=== PATIENT | female | born 1975 | race Hispanic/Latino ===

== ENCOUNTER 2020-10-20 10:42 | Inpatient (IN) | payer SELFPAY ==
--- NOTE | 2020-10-20 14:06 | Emergency Department Report ---
<MARIA ALEJANDRA DIANA - Last Filed: 10/20/20 19:12> ED Extremity Problem HPI - General Chief complaint: Extremity Injury, Lower Stated complaint: RT LOWER LEG PAIN Time Seen by Provider: 10/20/20 13:52 - Related Data Allergies Allergy/AdvReac Type Severity Reaction Status Date / Time Penicillins Allergy Swelling Verified 10/20/20 11:45 ED Course - Reevaluation(s) Reevaluation #1: 10/20/20 15:01 I received call from vascular lab that patient has acute right lower extremity DVT. I spoke to patient regarding her diagnosis. Patient states she was recently infected with Covid but her respiratory symptoms are improving. Patient does have mild tachycardia with normal sitting pulse ox. She is not currently on anticoagulants. I have ordered labs and CT angiogram for further reassessments. Subcu Lovenox ordered ED Medical Decision Making - Lab Data Result diagrams: 10/20/20 14:53 10/20/20 14:53 - Medical Decision Making pt to be admitted to the hospital. Case d/w Dr Baer and not a candidate for acute vascular intervention for Pulmonary embolism at this time. Pt room air sat 95% during ed stay (92% was an incorrect value on chart) ED Disposition Clinical Impression: Acute deep vein thrombosis of right lower extremity, Pulmonary embolism, bilateral, Post-COVID syndrome Disposition: ADMITTED INPATIENT Is pt being admited?: Yes Condition: Stable Time of Disposition: 19:14 (Dr Elliott/hospitalist) <СВЕТЛАНА TAM - Last Filed: 10/20/20 19:32> ED Extremity Problem HPI - General Source: patient Mode of arrival: Wheelchair Limitations: Physical Limitation - History of Present Illness Initial comments: 45 year old female presents to ED with complaints of right lower extremity pain and swelling. Patient states she noticed it yesterday. She states pain is from thigh down to calf, but more so in calf. Patient states her leg feels tight and it hurts. She denies any apparent redness or bruising to the leg. She denies any injury. Patient states that she was hospitalized for covid around october 09. He states that she spent 3 to 4 days in the hospital and got discharge. Patient states that she still have some residual shortness of breath from the Covid, but not as bad as when she first got sick. She denies any chest pain, dizziness, syncope or any additional symptoms. Patient states that other than her obesity she denies any other significant past history. She denies any h istory of PE or DVT in the past. MD Complaint: extremity pain, extremity swelling, joint paint -: Gradual (YESTERDAY ) ED Review of Systems ROS: Stated complaint: RT LOWER LEG PAIN Other details as noted in HPI Comment: All other systems reviewed and negative Constitutional: denies: chills, fever Eyes: denies: eye pain, eye discharge, vision change ENT: denies: ear pain, throat pain Respiratory: shortness of breath. denies: cough Cardiovascular: as per HPI. denies: chest pain, palpitations, dyspnea on exertion, orthopnea, edema, syncope, paroxysmal nocturnal dyspnea Endocrine: no symptoms reported Gastrointestinal: denies: abdominal pain, nausea, diarrhea, constipation, hematemesis, melena Genitourinary: denies: urgency, dysuria, frequency, hematuria, discharge Musculoskeletal: joint swelling, arthralgia, myalgia Skin: denies: rash, lesions, change in color, change in hair/nails, pruritus Neurological: denies: headache, weakness, numbness, paresthesias, confusion, abnormal gait, vertigo Psychiatric: denies: anxiety, depression, auditory hallucinations, visual hallucinations, homicidal thoughts, suicidal thoughts ED Past Medical Hx - Past Medical History Previous Medical History?: No - Surgical History Additional Surgical History: ECTOPIC PREG ED Physical Exam - General Limitations: Physical Limitation General appearance: alert, in no apparent distress - Head Head exam: Present: atraumatic, normocephalic, normal inspection - Eye Eye exam: Present: normal appearance, PERRL, EOMI Pupils: Present: normal accommodation - Neck Neck exam: Present: normal inspection, full ROM - Respiratory Respiratory exam: Present: normal lung sounds bilaterally. Absent: respiratory distress, wheezes, rales, rhonchi - Cardiovascular Cardiovascular Exam: Present: normal rhythm, tachycardia, normal heart sounds - Extremities Exam Extremities exam: Present: full ROM, tenderness (TTP mildly to anterior distal right tight and moderate ttp right calf.), pedal edema (mild to mod swelling right lower leg into right foot ), calf tenderness (right ), other (No erythema or brusing ) - Neurological Exam Neurological exam: Present: alert, oriented X3, CN II-XII intact, normal gait - Psychiatric Psychiatric exam: Present: normal affect, normal mood ED Course Vital Signs 10/20/20 10/20/20 10/20/20 11:46 16:48 18:25 Temperature 98.8 F Pulse Rate 115 H 93 H 98 H Respiratory 20 20 20 Rate Blood Pressure 128/74 143/75 O2 Sat by Pulse 96 92 99 Oximetry ED Medical Decision Making - Lab Data Result diagrams: 10/20/20 14:53 10/20/20 14:53 - EKG Data EKG shows normal: sinus rhythm Rate: tachycardia (102) - EKG Data Interpretation: normal EKG - Radiology Data Radiology results: report reviewed Patient: BRADEN CHANEY MR#: [id number] : 1975 Acct:[id number] Age/Sex: 45 / F ADM Date: 10/20/20 Loc: ED Attending Dr: Ordering Physician: СВЕТЛАНА TAM Date of Service: 10/20/20 Procedure(s): VL venous duplex LE RT Accession Number(s): [id number] cc: СВЕТЛАНА TAM DUPLEX DOPPLER LOWER EXTREMITY VEINS, RIGHT INDICATION / CLINICAL INFORMATION: le SWELLING/PAIN. TECHNIQUE: Duplex doppler imaging was performed through the veins of the right lower extremity using venous compression and other maneuvers. COMPARISON: None available. FINDINGS: RIGHT COMMON FEMORAL VEIN: Negative. RIGHT FEMORAL VEIN: Negative. RIGHT POPLITEAL VEIN: Acute thrombus. RIGHT CALF VEINS: Acute thrombus. ADDITIONAL FINDINGS: Superficial venous thrombosis is seen within a gastrocnemius vein. IMPRESSION: 1. Acute DVT in the right lower extremity as above. The crepe maker reported these findings to Dr. Diana at the conclusion of the exam. Signer Name: Ashkan Galo MD Signed: 10/20/2020 2:59 PM Workstation Name: [id number] Transcribed By: LIDA Dictated By: Ashkan Galo MD Electronically Authenticated By: Ashkan Galo MD Signed Date/Time: 10/20/201458 DD/ 57 TD/TT: Patient: BRADEN CHANEY MR#: [id number] : 1975 Acct:[id number] Age/Sex: 45 / F ADM Date: 10/20/20 Loc: ED Attending Dr: Ordering Physician: MARIA ALEJANDRA DIANA MD Date of Service: 10/20/20 Procedure(s): CT angio chest Accession Number(s): [id number] cc: MARIA ALEJANDRA DIANA MD CTA CHEST WITH IV CONTRAST INDICATION: extensive dvt, recent covid 100 ml omni 350. TECHNIQUE: Axial CT images were obtained through the chest after injection of 100 cc IV contrast. 3 plane MIP reconstructions were produced. All CT scans at this location are performed using CT dose reduction for ALARA by means of automated exposure control. COMPARISON: None available. FINDINGS: PULMONARY ARTERIES: Multiple moderate-sized bilateral pulmonary emboli involving segmental pulmonary arteries of right middle, both upper and lower lobes. THORACIC AORTA: No acute abnormality. HEART: Normal. CORONARY ARTERIES: No significant calcification. PLEURA: No pleural effusion. No pneumothorax. LYMPH NODES: No significant adenopathy. LUNGS: Moderate to severe patchy bilateral groundglass parenchymal disease characteristic for Covid pneumonia ADDITIONAL FINDINGS: None. UPPER ABDOMEN: No acute findings. SKELETAL STRUCTURES: No significant osseous abnormality. IMPRESSION: 1. Multiple moderate bilateral segmental acute pulmonary emboli 2. Moderate bilateral Covid pneumonia CRITICAL RESULT: Moderate acute bilateral segmental pulmonary emboli described above Time of Discovery (COUNTERINTELLIGENCE SPECIALIST/CDT): 4:47 PM Central standard time 10/20/2020 Time of Communication (COUNTERINTELLIGENCE SPECIALIST/CDT): 4:50 PM Licensed Practitioner Receiving Report: Dr. Diana Read-Back Performed: Yes. Signer Name: Emiliano Araujo MD Signed: 10/20/2020 5:48 PM Workstation Name: [id number] Transcribed By: TL Dictated By: Emiliano Araujo MD Electronically Authenticated By: Emiliano Araujo MD Signed Date/Time: 10/20/201747 DD/ 44 TD/TT: - Medical Decision Making Venous doppler RLE showed + extensive DVT. This was reported to Dr Diana. She also saw and evaluated patient. See her note for details. Labs, CTA and Lovenox was ordered. 1800. CTA shows IMPRESSION: 1. Multiple moderate bilateral segmental acute pulmonary emboli 2. Moderate bilateral Covid pneumonia . This was called in to Dr Diana. Pt to be admitted. Pt currently sitting in chair, she does not appear to be in acute distress currently at rest. Repeat VS show improvement of her tachycardia and her repeat O2 was 95% on RA at rest (the 92% documented was in error per discussion with JOSE G Quick, who repeated pt VS). Pt currently getting the lovenox. Discussed all results with patient, and reason for lovenox and admission with patient. Pt expressed understanding and agreed with plan. Pt currently stable. Critical care attestation.: If time is entered above; I have spent that time in minutes in the direct care of this critically ill patient, excluding procedure time.
[2020-10-20] MEDS ORDERED: ENOXAPARIN 100 MG/1 ML INJ SUB-Q ONE (14:53)
--- NOTE | 2020-10-20 15:04 | Vascular Lab Report ---
DUPLEX DOPPLER LOWER EXTREMITY VEINS, RIGHT INDICATION / CLINICAL INFORMATION: le SWELLING/PAIN. TECHNIQUE: Duplex doppler imaging was performed through the veins of the right lower extremity using venous comp ression and other maneuvers. COMPARISON: None available. FINDINGS: RIGHT COMMON FEMORAL VEIN: Negative. RIGHT FEMORAL VEIN: Negative. RIGHT POPLITEAL VEIN: Acute thrombus. RIGHT CALF VEINS: Acute thrombus. ADDITIONAL FINDINGS: Superficial venous thrombosis is seen within a gastrocnemius vein. IMPRESSION: 1. Acute DVT in the right lower extremity as above. The furniture technician reported these findings to Dr. Diana at the conclusion of the exam. Signer Name: Ashkan Galo MD Signed: 10/20/2020 2:59 PM Workstation Name: [email or web address]
[2020-10-20 15:28] LABS: BUN/Creatinine Ratio 11; Blood Urea Nitrogen 9 mg/dL (7-17); Calcium 8.8 mg/dL (8.4-10.2); Hemolysis Index 4
[2020-10-20 17:33] LABS: Hematocrit 33.1 % (30.3-42.9)
[2020-10-20 17:40] LABS: Hemoglobin 10.2 gm/dl (10.1-14.3); Mean Corpuscular HGB Conc 31 % (30-34); Mean Corpuscular Volume 74 fl (79-97); Mean Platelet Volume 8.2 fl (6-12); Platelet Count 458 K/mm3 (140-440); Red Blood Count 4.51 M/mm3 (3.65-5.03); Red Cell Distribution Width 18.8 % (13.2-15.2)
--- NOTE | 2020-10-20 17:54 | Cat Scan Report ---
CTA CHEST WITH IV CONTRAST INDICATION: extensive dvt, recent covid 100 ml omni 350. TECHNIQUE: Axial CT images were obtained through the chest after injection of 100 cc IV contrast. 3 plane MIP re constructions were produced. All CT scans at this location are performed using CT dose reduction for ALARA by means of automated exposure control. COMPARISON: None available. FINDINGS: PULMONARY ARTERIES: Multiple moderate-sized bilateral pulmonary emboli involving segmental pulmonary arteries of right middle, both upper and lower lobes. THORACIC AORTA: No acute abnormality. HEART: Normal. CORONARY ARTERIES: No significant calcification. PLEURA: No pleural effusion. No pneumothorax. LYMPH NODES: No significant adenopathy. LUNGS: Moderate to severe patchy bilateral groundglass parenchymal disease characteristic for Covid p [place] ADDITIONAL FINDINGS: None. UPPER ABDOMEN: No acute findings. SKELETAL STRUCTURES: No significant osseous abnormality. IMPRESSION: 1. Multiple moderate bilateral segmental acute pulmonary emboli 2. Moderate bilateral Covid pneumonia CRITICAL RESULT: Moderate acute bilateral segmental pulmonary emboli described above Time of Discovery (FINISHING MACHINE OPERATOR/CDT): 4:47 PM Central standard time 10/20/2020 Time of Communication (FINISHING MACHINE OPERATOR/CDT): 4:50 PM Licensed Practitioner Receiving Report: Dr. Diana Read-Back Performed: Yes. Signer Name: Emiliano Araujo MD Signed: 10/20/2020 5:48 PM Workstation Name: [id number]
[2020-10-20] MEDS ORDERED: ENOXAPARIN 150 MG/1 ML INJ SUB-Q ONE (18:00)
--- NOTE | 2020-10-20 18:28 | History and Physical Report ---
History of Present Illness Chief complaint: My leg hurts and I do not feel well History of present illness: 45 YO Female with Obesity Hypoventilation Syndrome, SMO, Coronavirus Infection presents to ED for evaluation. Patient reports "my leg hurts and I do not feel good". Patient states that she has experienced generalized weakness, subjective fever, fatigue, body aches, decreased exercise tolerance as well as leg pain over the past 2 days with persistent and worsening symptoms over the same timeframe. EMS was notified and upon arrival the patient was found to be in distress and subsequent transported to [facility] for further care and evaluation of the aforementioned symptoms. The patient was seen and evaluated in the emergency department. All lab and imaging studies reviewed. The patient was found to have a pulse oximetry of 89% with exertion which is consistent with acute hypoxemic respiratory failure. Chest x-ray revealed bilateral pneumonia. CT scan of the chest revealed right-sided pulmonary embolus. Doppler revealed right lower extremity DVT. The patient was admitted to medical floor and init iated on pneumonia protocol as well as coronavirus protocol. The patient was also initiated on therapeutic anticoagulation. Patient denies chills, chest pain, palpitation, skin rash, trauma, or known ill contacts. No prior admission for review. No medication listed at time of admission for reconciliation. Past History Past Medical History: other (See HPI) Past Surgical History: Other (Ectopic ) Social history: single. denies: smoking, alcohol abuse Family history: hypertension Medications and Allergies Allergies Allergy/AdvReac Type Severity Reaction Status Date / Time Penicillins Allergy Swelling Verified 10/20/20 11:45 Review of Systems Constitutional: fever, fatigue, weakness, malaise Ears, nose, mouth and throat: no ear pain, no ear discharge, no nose pain Breasts: no change in shape, no swelling, no mass Cardiovascular: shortness of breath, no chest pain, no palpitations, no edema Respiratory: cough, no cough with sputum, no excessive sputum, no hemoptysis Gastrointestinal: no abdominal pain, no nausea, no vomiting, no diarrhea, no c onstipation Genitourinary Female: no pelvic pain, no flank pain, no dysuria, no urinary frequency, no urgency Rectal: no pain, no incontinence, no bleeding Musculoskeletal: other (Leg swelling), no neck stiffness, no neck pain, no shooting arm pain, no low back pain Integumentary: no rash, no pruritis, no redness, no sores, no wounds Neurological: no head injury, no transient paralysis, no parathesias, no numbness, no tingling, no syncope, no tremors Psychiatric: no anxiety, no change in sleep habits, no sleep disturbances, no insomnia, no hypersomnia Endocrine: no cold intolerance, no polyphagia, no excessive thirst Hematologic/Lymphatic: no easy bruising, no easy bleeding Allergic/Immunologic: no wheezing Exam - Constitutional Vitals: Temp Pulse Resp BP Pulse Ox 98.8 F 98 H 20 143/75 99 10/20/20 11:46 10/20/20 18:25 10/20/20 18:25 10/20/20 16:48 10/20/20 18:25 General appearance: Present: mild distress, obese - EENT Eyes: Present: PERRL ENT: hearing intact, clear oral mucosa - Neck Neck: Present: supple, normal ROM - Respiratory Respiratory effort: labored, accessory muscle use Respiratory: bilateral: diminished, rhonchi - Cardiovascular Heart Sounds: Present: S1 & S2. Absent: rub, click - Extremities Extremities: pulses symmetrical, No edema Extremity abnormal: edema Peripheral Pulses: within normal limits - Abdominal General gastrointestinal: Present: soft, non-tender, non-distended, normal bowel sounds Female genitourinary: Present: normal - Integumentary Integumentary: Present: clear, warm, dry - Musculoskeletal Musculoskeletal: generalized weakness - Psychiatric Psychiatric: appropriate mood/affect, intact judgment & insight - Neurologic Neurologic: CNII-XII intact, moves all extremities Results - Labs CBC & Chem 7: 10/20/20 19:47 10/20/20 19:47 Labs: Abnormal lab results 10/20/20 Range/Units 14:53 MCV 74 L (79-97) fl MCH 23 L (28-32) pg RDW 18.8 H (13.2-15.2) % Plt Count 458 H (140-440) K/mm3 Assessment and Plan - Patient Problems (1) Acute hypoxemic respiratory failure Current Visit: Yes Status: Acute Plan to address problem: Supplemental oxygen, pulse oximetry, nebulizer therapy, CT scan chest, chest x- ray. (2) Pneumonia Current Visit: Yes Status: Acute Plan to address problem: Pneumonia protocol: Chest x-ray, CBC, CMP, IV antibiotic therapy, supplemental oxygen, pulse oximetry, nebulizer therapy, blood culture. (3) Coronavirus infection Current Visit: Yes Status: Acute Plan to address problem: Coronavirus protocol: IV steroid therapy, IV antibiotic therapy, supplemental oxygen, pulse oximetry, vitamin D therapy, vitamin C therapy, zinc therapy, therapeutic anticoagulation. (4) Obesity hypoventilation syndrome Current Visit: Yes Status: Acute Plan to address problem: Balanced diet, increase physical activity at discharge, outpatient pulmonary follow-up for sleep study, outpatient bariatric surgery consult. (5) Acute deep vein thrombosis of right lower extremity Current Visit: Yes Status: Acute Plan to address problem: Lower extremity Doppler, therapeutic anticoagulation, (6) Pulmonary embolism, bilateral Current Visit: Yes Status: Acute Plan to address problem: Therapeutic anticoagulation, echocardiogram to evaluate for RV strain pattern, supplemental oxygen, supportive care. Vascular surgery consulted. (7) DVT prophylaxis Current Visit: Yes Status: Acute Plan to address problem: SCDs bilateral lower extremities while in bed, continue therapeutic anticoagulation.
[2020-10-20] MEDS ORDERED: ALBUTEROL 2.5 MG/3 ML NEBU IH PRN (18:30)
[2020-10-20] MEDS ORDERED: ONDANSETRON 4 MG/2 ML INJ IV PRN (18:30)
[2020-10-20] MEDS ORDERED: HYDROmorphone 1 MG/1 ML INJ IV PRN (18:30)
[2020-10-20] MEDS ORDERED: ACETAMINOPHEN 325 MG TAB PO PRN (18:30)
[2020-10-20] MEDS ORDERED: oxyCODONE /ACETAMINOPHEN 5-325MG TAB PO PRN (18:30)
[2020-10-20 18:47] LABS: Total Cells Counted 100
[2020-10-20 18:48] LABS: Anisocytosis RARE; Hypochromasia 1+
[2020-10-20 19:12] LABS: C-Reactive Protein 8.7 mg/dL (0.00-1.30)
[2020-10-20 19:40] LABS: INR 1.08 (0.87-1.13)
[2020-10-20 19:41] LABS: Partial Thromboplastin Time 22.6 Sec. (24.2-36.6)
[2020-10-20 20:09] LABS: Hematocrit 32.4 % (30.3-42.9); Hemoglobin 10.1 gm/dl (10.1-14.3); Mean Corpuscular HGB Conc 31 % (30-34); Mean Corpuscular Volume 72 fl (79-97); Platelet Count 481 K/mm3 (140-440); Red Blood Count 4.53 M/mm3 (3.65-5.03); Red Cell Distribution Width 19.2 % (13.2-15.2)
[2020-10-20] MEDS: AZITHROMYCIN/NS 500 MG/250 ML 500 MG/250 ML BAG IV SCH (20:19)
[2020-10-21] MEDS: FAMOTIDINE 10 MG TAB PO SCH ×3 (00:01→21:34)
[2020-10-21] MEDS: methylPREDNISolone Sod Succinate 40 MG/1 ML INJ IV SCH ×4 (00:01→21:35)
[2020-10-21] MEDS: APIXABAN 5 MG TAB PO SCH ×3 (00:01→21:33)
[2020-10-21] MEDS: ASCORBIC ACID 500 MG TAB PO SCH ×3 (00:01→21:37)
[2020-10-21] MEDS: ZINC SULFATE 220 MG CAP PO SCH ×3 (00:01→21:35)
[2020-10-21 05:55] LABS: Basophils % (Auto) 0.7 % (0.0-1.8); Eosinophils # (Auto) 0.1 K/mm3 (0.0-0.4); Eosinophils % (Auto) 0.8 % (0.0-4.3); Hematocrit 31.5 % (30.3-42.9); Hemoglobin 9.6 gm/dl (10.1-14.3); Lymphocytes # (Auto) 0.7 K/mm3 (1.2-5.4); Lymphocytes % (Auto) 10.5 % (13.4-35.0); Mean Corpuscular HGB Conc 30 % (30-34); Mean Corpuscular Volume 71 fl (79-97); Monocytes # (Auto) 0.2 K/mm3 (0.0-0.8); Monocytes % (Auto) 3.3 % (0.0-7.3); Platelet Count 465 K/mm3 (140-440); Red Blood Count 4.45 M/mm3 (3.65-5.03); Red Cell Distribution Width 18.8 % (13.2-15.2)
[2020-10-21 06:11] LABS: Blood Urea Nitrogen 10 mg/dL (7-17); Calcium 8.3 mg/dL (8.4-10.2); Hemolysis Index 0
[2020-10-21 06:12] LABS: BUN/Creatinine Ratio 14
[2020-10-21] MEDS: CHOLECALCIFEROL (VIT D3) 1000 UNIT (25 mcg) TAB PO SCH (09:53)
[2020-10-21] MEDS ORDERED: CHOLECALCIFEROL (VIT D3) 400 UNIT TAB PO SCH (10:00)
--- NOTE | 2020-10-21 14:14 | Progress Note ---
Assessment and Plan Assessment and plan: 45 YO Female with Obesity Hypoventilation Syndrome, SMO, Coronavirus Infection presents to ED for evaluation. Patient reports "my leg hurts and I do not feel good". Patient states that she has experienced generalized weakness, subjective fever, fatigue, body aches, decreased exercise tolerance as well as leg pain over the past 2 days with persistent and worsening symptoms over the same timeframe. EMS was notified and upon arrival the patient was found to be in distress and subsequent transported to [facility] for further care and evaluation of the aforementioned symptoms. The patient was seen and evaluated in the emergency department. All lab and imaging studies reviewed. The patient was found to have a pulse oximetry of 89% with exertion which is consistent with acute hypoxemic respiratory failure. Chest x-ray revealed bilateral pneumonia. CT scan of the chest revealed right-sided pulmonary embolus. Doppler revealed right lower extremity DVT. The patient was admitted to medical floor and initiated on pneumonia protocol as well as coronavirus protocol. The patient was also initiated on therapeutic anticoagulation. Patient denies chills, chest pain, palpitation, skin rash, trauma, or known ill contacts. No prior admission for review. No medication listed at time of admission for reconciliation. Patient seen and examined today resting comfortably. She has been started on anticoagulation secondary to pulmonary embolism. We will transition her to Eliquis discussed with case management to get her on Eliquis card. She does use oxygen at home as a result of recent COVID diagnosis. It is likely that this is the reason she developed pulmonary embolism. Although outpatient further evaluation of coagulopathy is recommended. Anticipate discharge in am (1) Acute hypoxemic respiratory failure Current Visit: Yes Status: Acute Plan to address problem: Supplemental oxygen, pulse oximetry, nebulizer therapy, CT scan chest, chest x- ray. (2) Pneumonia Current Visit: Yes Status: Acute Plan to address problem: Pneumonia protocol: Chest x-ray, CBC, CMP, IV antibiotic therapy, supplemental oxygen, pulse oximetry, nebulizer therapy, blood culture. (3) Coronavirus infection Current Visit: Yes Status: Acute Plan to address problem: Coronavirus protocol: IV steroid therapy, IV antibiotic therapy, supplemental oxygen, pulse oximetry, vitamin D therapy, vitamin C therapy, zinc therapy, ther apeutic anticoagulation. (4) Obesity hypoventilation syndrome Current Visit: Yes Status: Acute Plan to address problem: Balanced diet, increase physical activity at discharge, outpatient pulmonary follow-up for sleep study, outpatient bariatric surgery consult. (5) Acute deep vein thrombosis of right lower extremity Current Visit: Yes Status: Acute Plan to address problem: Lower extremity Doppler, therapeutic anticoagulation, (6) Pulmonary embolism, bilateral Current Visit: Yes Status: Acute Plan to address problem: Therapeutic anticoagulation, echocardiogram to evaluate for RV strain pattern, supplemental oxygen, supportive care. Vascular surgery consulted. (7) DVT prophylaxis Current Visit: Yes Status: Acute Plan to address problem: SCDs bilateral lower extremities while in bed, continue therapeutic an ticoagulation. History Interval history: Patient seen and examined, still with right calf pain but improving. she tells me she was diagnosed with COVID 19 a few weeks ago from family contact. She reports that her dyspnea is at baseline Hospitalist Physical - Physical exam Narrative exam: VITAL SIGNS: Reviewed. GENERAL: The patient appears normally developed, Morbidly obese, Vital signs as documented. HEAD: No signs of head trauma. EYES: Pupils are equal. Extraocular motions intact. EARS: Hearing grossly intact. MOUTH: Oropharynx is normal. NECK: No adenopathy, no JVD. CHEST: Chest with Diminished breath sounds bilaterally. No wheezes, rales, or rhonchi. CARDIAC: Regular rate and rhythm. S1 and S2, without murmurs, gallops, or rubs. VASCULAR: No Edema. Peripheral pulses normal and equal in all extremities. ABDOMEN: Soft, non tender and non distended. No rebound or guarding, and no masses palpated. Bowel Sounds normal. MUSCULOSKELETAL: Good range of motion of all major joints. Extremities without clubbing, cyanosis or edema. NEUROLOGIC EXAM: Alert and oriented x 3 No focal sensory or strength deficits. Speech normal. Follows commands. PSYCHIATRIC: Mood normal. SKIN: detail exam as documented in skin assessment - Constitutional Vitals: Temp Pulse Resp BP Pulse Ox 97.7 F 109 H 24 131/76 94 10/21/20 04:30 10/21/20 04:30 10/21/20 04:30 10/21/20 04:30 10/21/20 10:38 General appearance: Present: mild distress, obese Results - Labs CBC & Chem 7: 10/21/20 05:20 10/21/20 05:20 Labs: Laboratory Last Values WBC 6.6 K/mm3 (4.5-11.0) 10/21/20 05:20 RBC 4.45 M/mm3 (3.65-5.03) 10/21/20 05:20 Hgb 9.6 gm/dl (10.1-14.3) L 10/21/20 05:20 Hct 31.5 % (30.3-42.9) 10/21/20 05:20 MCV 71 fl (79-97) L 10/21/20 05:20 MCH 22 pg (28-32) L 10/21/20 05:20 MCHC 30 % (30-34) 10/21/20 05:20 RDW 18.8 % (13.2-15.2) H 10/21/20 05:20 Plt Count 465 K/mm3 (140-440) H 10/21/20 05:20 Lymph % (Auto) 10.5 % (13.4-35.0) L 10/21/20 05:20 [place] % (Auto) 3.3 % (0.0-7.3) 10/21/20 05:20 Eos % (Auto) 0.8 % (0.0-4.3) 10/21/20 05:20 Baso % (Auto) 0.7 % (0.0-1.8) 10/21/20 05:20 Lymph # (Auto) 0.7 K/mm3 (1.2-5.4) L 10/21/20 05:20 [place] # (Auto) 0.2 K/mm3 (0.0-0.8) 10/21/20 05:20 Eos # (Auto) 0.1 K/mm3 (0.0-0.4) 10/21/20 05:20 Baso # (Auto) 0.0 K/mm3 (0.0-0.1) 10/21/20 05:20 Add Manual Diff Complete 10/20/20 14:53 Total Counted 100 10/20/20 14:53 Seg Neutrophils % 84.7 % (40.0-70.0) H 10/21/20 05:20 Seg Neuts % (Manual) 64.0 % (40.0-70.0) 10/20/20 14:53 Lymphocytes % (Manual) 15.0 % (13.4-35.0) 10/20/20 14:53 Monocytes % (Manual) 16.0 % (0.0-7.3) H 10/20/20 14:53 Eosinophils % (Manual) 5.0 % (0.0-4.3) H 10/20/20 14:53 Nucleated RBC % Not Reportable 10/20/20 14:53 Seg Neutrophils # 5.6 K/mm3 (1.8-7.7) 10/21/20 05:20 Seg Neutrophils # Man 5.4 K/mm3 (1.8-7.7) 10/20/20 14:53 Band Neutrophils # 0.0 K/mm3 10/20/20 14:53 Lymphocytes # (Manual) 1.3 K/mm3 (1.2-5.4) 10/20/20 14:53 Abs React Lymphs (Man) 0.0 K/mm3 10/20/20 14:53 Monocytes # (Manual) 1.3 K/mm3 (0.0-0.8) H 10/20/20 14:53 Eosinophils # (Manual) 0.4 K/mm3 (0.0-0.4) 10/20/20 14:53 Basophils # (Manual) 0.0 K/mm3 (0.0-0.1) 10/20/20 14:53 Metamyelocytes # 0.0 K/mm3 10/20/20 14:53 Myelocytes # 0.0 K/mm3 10/20/20 14:53 Promyelocytes # 0.0 K/mm3 10/20/20 14:53 Blast Cells # 0.0 K/mm3 10/20/20 14:53 WBC Morphology Not Reportable 10/20/20 14:53 Hypersegmented Neuts Not Reportable 10/20/20 14:53 Hyposegmented Neuts Not Reportable 10/20/20 14:53 Hypogranular Neuts Not Reportable 10/20/20 14:53 Smudge Cells Not Reportable 10/20/20 14:53 Toxic Granulation Not Reportable 10/20/20 14:53 Toxic Vacuolation Not Reportable 10/20/20 14:53 Dohle Bodies Not Reportable 10/20/20 14:53 Pelger-Huet Anomaly Not Reportable 10/20/20 14:53 Patricio Rods Not Reportable 10/20/20 14:53 Platelet Estimate Not Reportable 10/20/20 14:53 Clumped Platelets Not Reportable 10/20/20 14:53 Plt Clumps, EDTA Not Reportable 10/20/20 14:53 Large Platelets Not Reportable 10/20/20 14:53 Giant Platelets Not Reportable 10/20/20 14:53 Platelet Satelliting Not Reportable 10/20/20 14:53 Plt Morphology Comment Not Reportable 10/20/20 14:53 RBC Morphology Not Reportable 10/20/20 14:53 Dimorphic RBCs Not Reportable 10/20/20 14:53 Polychromasia Not Reportable 10/20/20 14:53 Hypochromasia 1+ 10/20/20 14:53 Poikilocytosis Not Reportable 10/20/20 14:53 Anisocytosis Rare 10/20/20 14:53 Microcytosis Not Reportable 10/20/20 14:53 Macrocytosis Not Reportable 10/20/20 14:53 Spherocytes Not Reportable 10/20/20 14:53 Pappenheimer Bodies Not Reportable 10/20/20 14:53 Sickle Cells Not Reportable 10/20/20 14:53 Target Cells Not Reportable 10/20/20 14:53 Tear Drop Cells Not Reportable 10/20/20 14:53 Ovalocytes Not Reportable 10/20/20 14:53 Helmet Cells Not Reportable 10/20/20 14:53 [place] Bodies Not Reportable 10/20/20 14:53 [place] Rings Not Reportable 10/20/20 14:53 [place] Cells Not Reportable 10/20/20 14:53 Bite Cells Not Reportable 10/20/20 14:53 Crenated Cell Not Reportable 10/20/20 14:53 Elliptocytes Not Reportable 10/20/20 14:53 Acanthocytes (Spur) Not Reportable 10/20/20 14:53 Rouleaux Not Reportable 10/20/20 14:53 Hemoglobin C Crystals Not Reportable 10/20/20 14:53 Schistocytes Not Reportable 10/20/20 14:53 Malaria parasites Not Reportable 10/20/20 14:53 Vijay Bodies Not Reportable 10/20/20 14:53 Hem Pathologist Commnt No 10/20/20 14:53 PT 14.5 Sec. (12.2-14.9) 10/20/20 18:37 INR 1.08 (0.87-1.13) 10/20/20 18:37 APTT 22.6 Sec. (24.2-36.6) L 10/20/20 18:37 D-Dimer 1156.32 ng/mlDDU (0-234) H 10/20/20 18:37 Sodium 137 mmol/L (137-145) 10/21/20 05:20 Potassium 4.7 mmol/L (3.6-5.0) 10/21/20 05:20 Chloride 101.1 mmol/L (98-107) 10/21/20 05:20 Carbon Dioxide 22 mmol/L (22-30) 10/21/20 05:20 Anion Gap 19 mmol/L 10/21/20 05:20 BUN 10 mg/dL (7-17) 10/21/20 05:20 Creatinine 0.7 mg/dL (0.6-1.2) 10/21/20 05:20 Estimated GFR > 60 ml/min 10/21/20 05:20 BUN/Creatinine Ratio 14 % 10/21/20 05:20 Glucose 141 mg/dL (65-100) H 10/21/20 05:20 Calcium 8.3 mg/dL (8.4-10.2) L 10/21/20 05:20 Lactate Dehydrogenase 387 units/L (91-180) H 10/20/20 18:37 C-Reactive Protein 8.70 mg/dL (0.00-1.30) H 10/20/20 18:37 Procalcitonin < 0.05 ng/mL (<0.15) 10/20/20 18:37 HCG, Quant < 2 mIU/mL (0-4) 10/20/20 14:53 Baez/IV: Voiding Method Toilet Active Medications - Current Medications Current Medications: Generic Name Dose Route Start Last Admin Trade Name Freq PRN Reason Stop Dose Admin Acetaminophen 650 mg 10/20/20 18:30 Acetaminophen 325 Mg Tab PO Q4H PRN Pain MILD(1-3)/Fever >100.5/GERARD Albuterol 2.5 mg 10/20/20 18:30 Albuterol 2.5 Mg/3 Ml Nebu IH Q4HRT PRN Shortness Of Breath Apixaban 10 mg 10/20/20 22:00 10/21/20 09:54 Apixaban 5 Mg Tab PO 10/27/20 10:01 10 mg Q12HR NEAL Administration Protocol Apixaban 5 mg 10/27/20 22:00 Apixaban 5 Mg Tab PO Q12HR NEAL Ascorbic Acid 500 mg 10/20/20 22:00 10/21/20 09:53 Ascorbic Acid 500 Mg Tab PO 500 mg BID NEAL Administration Cholecalciferol 1,000 unit 10/21/20 10:00 10/21/20 09:53 Cholecalciferol (Vit D3) 1000 Unit (25 Mcg) Tab PO 1,000 unit DAILY NEAL Administration Famotidine 10 mg 10/20/20 22:00 10/21/20 09:53 Famotidine 10 Mg Tab PO 10 mg BID NEAL Administration Hydromorphone HCl 0.5 mg 10/20/20 18:30 Hydromorphone 1 Mg/1 Ml Inj IV Q12H PRN Pain , Severe (7-10) Azithromycin 500 mg in 250 mls @ 250 mls/hr 10/20/20 19:00 10/21/20 00:02 Zithromax/Ns IV Infused Q24H NEAL Infusion Protocol Methylprednisolone Sodium Succinate 40 mg 10/20/20 22:00 10/21/20 05:59 Methylprednisolone Sod Succinate 40 Mg/1 Ml Inj IV 40 mg Q8HR NEAL Administration Ondansetron HCl 4 mg 10/20/20 18:30 Ondansetron 4 Mg/2 Ml Inj IV Q8H PRN Nausea And Vomiting Oxycodone/Acetaminophen 1 tab 10/20/20 18:30 Oxycodone /Acetaminophen 5-325mg Tab PO Q12H PRN Pain, Moderate (4-6) Sodium Chloride 10 ml 10/20/20 22:00 10/21/20 09:53 Sodium Chloride 0.9% 10 Ml Flush Syringe IV 10 ml BID NEAL Administration Sodium Chloride 10 ml 10/20/20 18:30 Sodium Chloride 0.9% 10 Ml Flush Syringe IV PRN PRN LINE FLUSH Zinc Sulfate 220 mg 10/20/20 22:00 10/21/20 09:53 Zinc Sulfate 220 Mg Cap PO 220 mg BID NEAL Administration
[2020-10-21] MEDS: AZITHROMYCIN/NS 500 MG/250 ML 500 MG/250 ML BAG IV SCH (19:34)
[2020-10-22] MEDS: methylPREDNISolone Sod Succinate 40 MG/1 ML INJ IV SCH ×3 (05:50→23:25)
[2020-10-22 06:32] LABS: Hematocrit 31.8 % (30.3-42.9); Hemoglobin 9.7 gm/dl (10.1-14.3); Mean Corpuscular HGB Conc 31 % (30-34); Mean Corpuscular Volume 72 fl (79-97); Platelet Count 550 K/mm3 (140-440); Red Blood Count 4.42 M/mm3 (3.65-5.03)
[2020-10-22] MEDS: ASCORBIC ACID 500 MG TAB PO SCH ×2 (09:27→23:25)
[2020-10-22] MEDS: ZINC SULFATE 220 MG CAP PO SCH ×2 (09:27→23:24)
[2020-10-22] MEDS: FAMOTIDINE 10 MG TAB PO SCH ×2 (09:27→23:24)
[2020-10-22] MEDS: CHOLECALCIFEROL (VIT D3) 1000 UNIT (25 mcg) TAB PO SCH (09:27)
[2020-10-22] MEDS: APIXABAN 5 MG TAB PO SCH ×2 (09:27→23:24)
--- NOTE | 2020-10-22 10:51 | Progress Note ---
Assessment and Plan Assessment and plan: 45 YO Female with Obesity Hypoventilation Syndrome, SMO, Coronavirus Infection presents to ED for evaluation. Patient reports "my leg hurts and I do not feel good". Patient states that she has experienced generalized weakness, subjective fever, fatigue, body aches, decreased exercise tolerance as well as leg pain over the past 2 days with persistent and worsening symptoms over the same timeframe. EMS was notified and upon arrival the patient was found to be in distress and subsequent transported to [facility] for further care and evaluation of the aforementioned symptoms. The patient was seen and evaluated in the emergency department. All lab and imaging studies reviewed. The patient was found to have a pulse oximetry of 89% with exertion which is consistent with acute hypoxemic respiratory failure. Chest x-ray revealed bilateral pneumonia. CT scan of the chest revealed right-sided pulmonary embolus. Doppler revealed right lower extremity DVT. The patient was admitted to medical floor and initiated on pneumonia protocol as well as coronavirus protocol. The patient was also initiated on therapeutic anticoagulation. Patient denies chills, chest pain, palpitation, skin rash, trauma, or known ill contacts. No prior admission for review. No medication listed at time of admission for reconciliation. Patient seen and examined today resting comfortably. She has been started on anticoagulation secondary to pulmonary embolism. We will transition her to Eliquis discussed with case management to get her on Eliquis card. She does use oxygen at home as a result of recent COVID diagnosis. It is likely that this is the reason she developed pulmonary embolism. Although outpatient further evaluation of coagulopathy is recommended. 10/22: Patient seen and examined, clinically improving, continue Eliquis, Will continue oxygen, Patient now noted with Pauses on Telemetry. Will consult cardiology, Awaiting ECHO. (1) Acute hypoxemic respiratory failure Current Visit: Yes Status: Acute Plan to address problem: Supplemental oxygen, pulse oximetry, nebulizer therapy, CT scan chest, chest x- ray. (2) Pneumonia Current Visit: Yes Status: Acute Plan to address problem: Pneumonia protocol: Chest x-ray, CBC, CMP, IV antibiotic therapy, supplemental oxygen, pulse oximetry, nebulizer therapy, blood culture. (3) Coronavirus infection Current Visit: Yes Status: Acute Plan to address problem: Coronavirus protocol: IV steroid therapy, IV antibiotic therapy, supplemental oxygen, pulse oximetry, vitamin D therapy, vitamin C therapy, zinc therapy, therapeutic anticoagulation. (4) Obesity hypoventilation syndrome Current Visit: Yes Status: Acute Plan to address problem: Balanced diet, increase physical activity at discharge, outpatient pulmonary follow-up for sleep study, outpatient bariatric surgery consult. (5) Acute deep vein thrombosis of right lower extremity Current Visit: Yes Status: Acute Plan to address problem: Lower extremity Doppler, therapeutic anticoagulation, (6) Pulmonary embolism, bilateral Current Visit: Yes Status: Acute Plan to address problem: Therapeutic anticoagulation, echocardiogram to evaluate for RV strain pattern, supplemental oxygen, supportive care. Vascular surgery consulted. (7) DVT prophylaxis Current Visit: Yes Status: Acute Plan to address problem: SCDs bilateral lower extremities while in bed, continue therapeutic anticoagulation. History Interval history: Patient seen and examined, still with right calf pain but improving. she reports much improvement in breathing status. She had noted Pauses ON TELE Hospitalist Physical - Physical exam Narrative exam: VITAL SIGNS: Reviewed. GENERAL: The patient appears normally developed, Morbidly obese, Vital signs as documented. HEAD: No signs of head trauma. EYES: Pupils are equal. Extraocular motions intact. EARS: Hearing grossly intact. MOUTH: Oropharynx is normal. NECK: No adenopathy, no JVD. CHEST: Chest with Diminished breath sounds bilaterally. No wheezes, rales, or rhonchi. CARDIAC: Regular rate and rhythm. S1 and S2, without murmurs, gallops, or rubs. VASCULAR: No Edema. Peripheral pulses normal and equal in all extremities. ABDOMEN: Soft, non tender and non distended. No rebound or guarding, and no masses palpated. Bowel Sounds normal. MUSCULOSKELETAL: Good range of motion of all major joints. Extremities without clubbing, cyanosis or edema. NEUROLOGIC EXAM: Alert and oriented x 3 No focal sensory or strength deficits. Speech normal. Follows commands. PSYCHIATRIC: Mood normal. SKIN: detail exam as documented in skin assessment - Constitutional Vitals: Temp Pulse Resp BP Pulse Ox 97.8 F 98 H 16 122/80 92 10/22/20 04:47 10/21/20 21:16 10/22/20 04:47 10/22/20 04:47 10/22/20 08:42 General appearance: Present: mild distress, obese Results - Labs CBC & Chem 7: 10/22/20 05:51 10/21/20 05:20 Labs: Laboratory Last Values WBC 11.3 K/mm3 (4.5-11.0) H 10/22/20 05:51 RBC 4.42 M/mm3 (3.65-5.03) 10/22/20 05:51 Hgb 9.7 gm/dl (10.1-14.3) L 10/22/20 05:51 Hct 31.8 % (30.3-42.9) 10/22/20 05:51 MCV 72 fl (79-97) L 10/22/20 05:51 MCH 22 pg (28-32) L 10/22/20 05:51 MCHC 31 % (30-34) 10/22/20 05:51 RDW 19.0 % (13.2-15.2) H 10/22/20 05:51 Plt Count 550 K/mm3 (140-440) H 10/22/20 05:51 Lymph % (Auto) 10.5 % (13.4-35.0) L 10/21/20 05:20 [place] % (Auto) 3.3 % (0.0-7.3) 10/21/20 05:20 Eos % (Auto) 0.8 % (0.0-4.3) 10/21/20 05:20 Baso % (Auto) 0.7 % (0.0-1.8) 10/21/20 05:20 Lymph # (Auto) 0.7 K/mm3 (1.2-5.4) L 10/21/20 05:20 [place] # (Auto) 0.2 K/mm3 (0.0-0.8) 10/21/20 05:20 Eos # (Auto) 0.1 K/mm3 (0.0-0.4) 10/21/20 05:20 Baso # (Auto) 0.0 K/mm3 (0.0-0.1) 10/21/20 05:20 Add Manual Diff Complete 10/20/20 14:53 Total Counted 100 10/20/20 14:53 Seg Neutrophils % 84.7 % (40.0-70.0) H 10/21/20 05:20 Seg Neuts % (Manual) 64.0 % (40.0-70.0) 10/20/20 14:53 Lymphocytes % (Manual) 15.0 % (13.4-35.0) 10/20/20 14:53 Monocytes % (Manual) 16.0 % (0.0-7.3) H 10/20/20 14:53 Eosinophils % (Manual) 5.0 % (0.0-4.3) H 10/20/20 14:53 Nucleated RBC % Not Reportable 10/20/20 14:53 Seg Neutrophils # 5.6 K/mm3 (1.8-7.7) 10/21/20 05:20 Seg Neutrophils # Man 5.4 K/mm3 (1.8-7.7) 10/20/20 14:53 Band Neutrophils # 0.0 K/mm3 10/20/20 14:53 Lymphocytes # (Manual) 1.3 K/mm3 (1.2-5.4) 10/20/20 14:53 Abs React Lymphs (Man) 0.0 K/mm3 10/20/20 14:53 Monocytes # (Manual) 1.3 K/mm3 (0.0-0.8) H 10/20/20 14:53 Eosinophils # (Manual) 0.4 K/mm3 (0.0-0.4) 10/20/20 14:53 Basophils # (Manual) 0.0 K/mm3 (0.0-0.1) 10/20/20 14:53 Metamyelocytes # 0.0 K/mm3 10/20/20 14:53 Myelocytes # 0.0 K/mm3 10/20/20 14:53 Promyelocytes # 0.0 K/mm3 10/20/20 14:53 Blast Cells # 0.0 K/mm3 10/20/20 14:53 WBC Morphology Not Reportable 10/20/20 14:53 Hypersegmented Neuts Not Reportable 10/20/20 14:53 Hyposegmented Neuts Not Reportable 10/20/20 14:53 Hypogranular Neuts Not Reportable 10/20/20 14:53 Smudge Cells Not Reportable 10/20/20 14:53 Toxic Granulation Not Reportable 10/20/20 14:53 Toxic Vacuolation Not Reportable 10/20/20 14:53 Dohle Bodies Not Reportable 10/20/20 14:53 Pelger-Huet Anomaly Not Reportable 10/20/20 14:53 Patricio Rods Not Reportable 10/20/20 14:53 Platelet Estimate Not Reportable 10/20/20 14:53 Clumped Platelets Not Reportable 10/20/20 14:53 Plt Clumps, EDTA Not Reportable 10/20/20 14:53 Large Platelets Not Reportable 10/20/20 14:53 Giant Platelets Not Reportable 10/20/20 14:53 Platelet Satelliting Not Reportable 10/20/20 14:53 Plt Morphology Comment Not Reportable 10/20/20 14:53 RBC Morphology Not Reportable 10/20/20 14:53 Dimorphic RBCs Not Reportable 10/20/20 14:53 Polychromasia Not Reportable 10/20/20 14:53 Hypochromasia 1+ 10/20/20 14:53 Poikilocytosis Not Reportable 10/20/20 14:53 Anisocytosis Rare 10/20/20 14:53 Microcytosis Not Reportable 10/20/20 14:53 Macrocytosis Not Reportable 10/20/20 14:53 Spherocytes Not Reportable 10/20/20 14:53 Pappenheimer Bodies Not Reportable 10/20/20 14:53 Sickle Cells Not Reportable 10/20/20 14:53 Target Cells Not Reportable 10/20/20 14:53 Tear Drop Cells Not Reportable 10/20/20 14:53 Ovalocytes Not Reportable 10/20/20 14:53 Helmet Cells Not Reportable 10/20/20 14:53 [place] Bodies Not Reportable 10/20/20 14:53 [place] Rings Not Reportable 10/20/20 14:53 [place] Cells Not Reportable 10/20/20 14:53 Bite Cells Not Reportable 10/20/20 14:53 Crenated Cell Not Reportable 10/20/20 14:53 Elliptocytes Not Reportable 10/20/20 14:53 Acanthocytes (Spur) Not Reportable 10/20/20 14:53 Rouleaux Not Reportable 10/20/20 14:53 Hemoglobin C Crystals Not Reportable 10/20/20 14:53 Schistocytes Not Reportable 10/20/20 14:53 Malaria parasites Not Reportable 10/20/20 14:53 Vijay Bodies Not Reportable 10/20/20 14:53 Hem Pathologist Commnt No 10/20/20 14:53 PT 14.5 Sec. (12.2-14.9) 10/20/20 18:37 INR 1.08 (0.87-1.13) 10/20/20 18:37 APTT 22.6 Sec. (24.2-36.6) L 10/20/20 18:37 D-Dimer 1156.32 ng/mlDDU (0-234) H 10/20/20 18:37 Sodium 137 mmol/L (137-145) 10/21/20 05:20 Potassium 4.7 mmol/L (3.6-5.0) 10/21/20 05:20 Chloride 101.1 mmol/L (98-107) 10/21/20 05:20 Carbon Dioxide 22 mmol/L (22-30) 10/21/20 05:20 Anion Gap 19 mmol/L 10/21/20 05:20 BUN 10 mg/dL (7-17) 10/21/20 05:20 Creatinine 0.7 mg/dL (0.6-1.2) 10/21/20 05:20 Estimated GFR > 60 ml/min 10/21/20 05:20 BUN/Creatinine Ratio 14 % 10/21/20 05:20 Glucose 141 mg/dL (65-100) H 10/21/20 05:20 Calcium 8.3 mg/dL (8.4-10.2) L 10/21/20 05:20 Lactate Dehydrogenase 387 units/L (91-180) H 10/20/20 18:37 C-Reactive Protein 8.70 mg/dL (0.00-1.30) H 10/20/20 18:37 Procalcitonin < 0.05 ng/mL (<0.15) 10/20/20 18:37 HCG, Quant < 2 mIU/mL (0-4) 10/20/20 14:53 Coronavirus (PCR) Positive (Negative) A 10/21/20 08:15 Baez/IV: Voiding Method Toilet Active Medications - Current Medications Current Medications: Generic Name Dose Route Start Last Admin Trade Name Freq PRN Reason Stop Dose Admin Acetaminophen 650 mg 10/20/20 18:30 Acetaminophen 325 Mg Tab PO Q4H PRN Pain MILD(1-3)/Fever >100.5/GERARD Albuterol 2.5 mg 10/20/20 18:30 Albuterol 2.5 Mg/3 Ml Nebu IH Q4HRT PRN Shortness Of Breath Apixaban 10 mg 10/20/20 22:00 10/22/20 09:27 Apixaban 5 Mg Tab PO 10/27/20 10:01 10 mg Q12HR NEAL Administration Protocol Apixaban 5 mg 10/27/20 22:00 Apixaban 5 Mg Tab PO Q12HR NEAL Ascorbic Acid 500 mg 10/20/20 22:00 10/22/20 09:27 Ascorbic Acid 500 Mg Tab PO 500 mg BID NEAL Administration Cholecalciferol 1,000 unit 10/21/20 10:00 10/22/20 09:27 Cholecalciferol (Vit D3) 1000 Unit (25 Mcg) Tab PO 1,000 unit DAILY NEAL Administration Famotidine 10 mg 10/20/20 22:00 10/22/20 09:27 Famotidine 10 Mg Tab PO 10 mg BID NEAL Administration Hydromorphone HCl 0.5 mg 10/20/20 18:30 Hydromorphone 1 Mg/1 Ml Inj IV Q12H PRN Pain , Severe (7-10) Azithromycin 500 mg in 250 mls @ 250 mls/hr 10/20/20 19:00 10/21/20 21:35 Zithromax/Ns IV Infused Q24H NEAL Infusion Protocol Methylprednisolone Sodium Succinate 40 mg 10/20/20 22:00 10/22/20 05:50 Methylprednisolone Sod Succinate 40 Mg/1 Ml Inj IV 40 mg Q8HR NEAL Administration Ondansetron HCl 4 mg 10/20/20 18:30 Ondansetron 4 Mg/2 Ml Inj IV Q8H PRN Nausea And Vomiting Oxycodone/Acetaminophen 1 tab 10/20/20 18:30 Oxycodone /Acetaminophen 5-325mg Tab PO Q12H PRN Pain, Moderate (4-6) Sodium Chloride 10 ml 10/20/20 22:00 10/22/20 09:27 Sodium Chloride 0.9% 10 Ml Flush Syringe IV 10 ml BID NEAL Administration Sodium Chloride 10 ml 10/20/20 18:30 Sodium Chloride 0.9% 10 Ml Flush Syringe IV PRN PRN LINE FLUSH Zinc Sulfate 220 mg 10/20/20 22:00 10/22/20 09:27 Zinc Sulfate 220 Mg Cap PO 220 mg BID NEAL Administration
[2020-10-22] MEDS ORDERED: guaiFENesin 100 MG/5 ML ORAL LIQD PO PRN (11:24)
[2020-10-22] MEDS: AZITHROMYCIN/NS 500 MG/250 ML 500 MG/250 ML BAG IV SCH (18:13)
--- NOTE | 2020-10-22 19:35 | Consultation ---
History of Present Illness Consult date: 10/22/20 Requesting physician: PARDEEP REEDER Consult reason: other (pauses) History of present illness: Pt is a 45-year-old female, previously unknown to our practice, who presented with complaints of fever, fatigue, body aches, and bilateral leg pain x 2-3 days prior to arrival. Pt was found to be COVID-positive, with radiographic evidence of PNA, and is currently being treated as such. She was also notably found to have an acute RLE DVT and bilateral PE, for which she is currently on Eliquis. Cardiology has been consulted for eval and mgmt of pauses noted on telemetry. ECG reveals sinus rhythm. Review of tele reveals primarily SR/ST 90-100s with intermittent sinus pauses noted during overnight and early AM hours, ranging from 2.5-3.5 seconds. Past History Past Medical History: other ([facility]) Past Surgical History: Other (ectopic ). denies: CABG, PTCA Social history: denies: smoking, alcohol abuse Family history: hypertension Medications and Allergies Allergies Allergy/AdvReac Type Severity Reaction Status Date / Time Penicillins Allergy Swelling Verified 10/20/20 11:45 Home Medications Medication Instructions Recorded Confirmed Last Taken Type No Known Home Medications [No 10/21/20 10/21/20 Unknown History Reported Home Medications] Active Meds: Active Medications Acetaminophen (Acetaminophen 325 Mg Tab) 650 mg PO Q4H PRN PRN Reason: Pain MILD(1-3)/Fever >100.5/GERARD Albuterol (Albuterol 2.5 Mg/3 Ml Nebu) 2.5 mg IH Q4HRT PRN PRN Reason: Shortness Of Breath Apixaban (Apixaban 5 Mg Tab) 10 mg PO Q12HR NEAL; Protocol Stop: 10/27/20 10:01 Last Admin: 10/22/20 09:27 Dose: 10 mg Documented by: Apixaban (Apixaban 5 Mg Tab) 5 mg PO Q12HR NEAL Ascorbic Acid (Ascorbic Acid 500 Mg Tab) 500 mg PO BID [facility] Last Admin: 10/22/20 09:27 Dose: 500 mg Documented by: Cholecalciferol (Cholecalciferol (Vit D3) 1000 Unit (25 Mcg) Tab) 1,000 unit PO DAILY [facility]AL Last Admin: 10/22/20 09:27 Dose: 1,000 unit Documented by: Famotidine (Famotidine 10 Mg Tab) 10 mg PO BID [facility] Last Admin: 10/22/20 09:27 Dose: 10 mg Documented by: Guaifenesin (Guaifenesin 100 Mg/5 Ml Oral Liqd) 200 mg PO Q4H PRN PRN Reason: Cough Last Admin: 10/22/20 13:18 Dose: 200 mg Documented by: Hydromorphone HCl (Hydromorphone 1 Mg/1 Ml Inj) 0.5 mg IV Q12H PRN PRN Reason: Pain , Severe (7-10) Azithromycin (Zithromax/Ns) 500 mg in 250 mls @ 250 mls/hr IV Q24H [facility]; Protocol Last Admin: 10/22/20 18:13 Dose: 250 mls/hr Documented by: Methylprednisolone Sodium Succinate (Methylprednisolone Sod Succinate 40 Mg/1 Ml Inj) 40 mg IV Q8HR [facility] Last Admin: 10/22/20 13:14 Dose: 40 mg Documented by: Ondansetron HCl (Ondansetron 4 Mg/2 Ml Inj) 4 mg IV Q8H PRN PRN Reason: Nausea And Vomiting Oxycodone/Acetaminophen (Oxycodone /Acetaminophen 5-325mg Tab) 1 tab PO Q12H DC N PRN Reason: Pain, Moderate (4-6) Sodium Chloride (Sodium Chloride 0.9% 10 Ml Flush Syringe) 10 ml IV BID [facility] Last Admin: 10/22/20 09:27 Dose: 10 ml Documented by: Sodium Chloride (Sodium Chloride 0.9% 10 Ml Flush Syringe) 10 ml IV PRN PRN PRN Reason: LINE FLUSH Zinc Sulfate (Zinc Sulfate 220 Mg Cap) 220 mg PO BID [facility] Last Admin: 10/22/20 09:27 Dose: 220 mg Documented by: Review of Systems Constitutional: fever, fatigue Cardiovascular: shortness of breath, no chest pain, no palpitations, no syncope, no lightheadedness Respiratory: shortness of breath Gastrointestinal: no abdominal pain, no nausea, no vomiting Genitourinary Female: no dysuria Integumentary: no rash, no wounds Neurological: no numbness, no tingling, no seizures, no syncope, no vertigo, no headaches Hematologic/Lymphatic: no easy bruising, no easy bleeding Allergic/Immunologic: no anaphylaxis Physical Examination Last Vital Signs Temp 98.4 F 10/22/20 16:46 Pulse 90 10/22/20 16:46 Resp 24 10/22/20 16:46 BP 132/81 10/22/20 16:46 Pulse Ox 91 10/22/20 16:46 General appearance: no acute distress HEENT: Positive: Normocephaly Neck: Positive: neck supple, trachea midline Cardiac: Positive: Reg Rate and Rhythm, S1/S2 Lungs: Positive: Decreased Breath Sounds Neuro: Positive: Grossly Intact Abdomen: Positive: Soft. Negative: Tender Skin: Negative: Rash Extremities: Present: lower extr. pulses. Absent: edema Results 10/22/20 05:51 10/21/20 05:20 CBC 10/22/20 Range/Units 05:51 WBC 11.3 H (4.5-11.0) K/mm3 RBC 4.42 (3.65-5.03) M/mm3 Hgb 9.7 L (10.1-14.3) gm/dl Hct 31.8 (30.3-42.9) % Plt Count 550 H (140-440) K/mm3 - Imaging and Cardiology Echo: report reviewed EKG: report reviewed, image reviewed - EKG Interpretation EKG: no acute changes EKG interpretations - Telemetry EKG Rhythm: Sinus Rhythm - EKG Sinus rhythms and dysrhythmias: sinus rhythm Assessment and Plan Echo reviewed - EF 55-60%, mild diastolic dysfxn. F/u BMP & Mg in AM. Avoid AV jewel blocking agents. May benefit from nightly CPAP. Ultimately recommend outpatient sleep study. Pt seen in conjunction with Dr. Cheng, who agrees with the assessment and plan of care. - Patient Problems (1) Acute hypoxemic respiratory failure Current Visit: Yes Status: Acute (2) Pneumonia due to COVID-19 virus Current Visit: Yes Status: Acute (3) Pulmonary embolism, bilateral Current Visit: Yes Status: Acute (4) Acute deep vein thrombosis of right lower extremity Current Visit: Yes Status: Acute (5) Sinus pause Current Visit: Yes Status: Acute (6) Anemia Current Visit: Yes Status: Acute (7) Obesity hypoventilation syndrome Current Visit: Yes Status: Chronic (8) LISA (obstructive sleep apnea) Current Visit: Yes Status: Suspected
[2020-10-23] MEDS: methylPREDNISolone Sod Succinate 40 MG/1 ML INJ IV SCH ×2 (06:53→15:33)
[2020-10-23 08:29] LABS: Blood Urea Nitrogen 18 mg/dL (7-17); Calcium 8.9 mg/dL (8.4-10.2); Hemolysis Index 2
[2020-10-23 08:42] LABS: BUN/Creatinine Ratio 30
[2020-10-23] MEDS: APIXABAN 5 MG TAB PO SCH (10:13)
[2020-10-23] MEDS: ZINC SULFATE 220 MG CAP PO SCH (10:13)
[2020-10-23] MEDS: ASCORBIC ACID 500 MG TAB PO SCH (10:13)
[2020-10-23] MEDS: FAMOTIDINE 10 MG TAB PO SCH (10:13)
[2020-10-23] MEDS: CHOLECALCIFEROL (VIT D3) 1000 UNIT (25 mcg) TAB PO SCH (10:13)
--- NOTE | 2020-10-23 10:25 | Discharge Summary ---
Providers - Providers Date of Admission: 10/20/20 18:30 Attending physician: PARDEEP REEDER MD 10/22/20 08:49 Consult to Physician [CONS] Routine Comment: Consulting Provider: LUZ LEOS Physician Instructions: Reason For Exam: cardiac pulses Primary care physician: CORN PICKER Hospitalization Reason for admission: Shortness of breath Condition: Stable Hospital course: 45 YO Female with Obesity Hypoventilation Syndrome, SMO, Coronavirus Infection presents to ED for evaluation. Patient reports "my leg hurts and I do not feel good". Patient states that she has experienced generalized weakness, subjective fever, fatigue, body aches, decreased exercise tolerance as well as leg pain over the past 2 days with persistent and worsening symptoms over the same timeframe. EMS was notified and upon arrival the patient was found to be in distress and subsequent transported to [facility] for further care and evaluation of the aforementioned symptoms. The patient was seen and evaluated in the emergency department. All lab and imaging studies reviewed. The patient was found to have a pulse oximetry of 89% with exertion which is consistent with acute hypoxemic respiratory failure. Chest x-ray revealed bilateral pneumonia. CT scan of the chest revealed right-sided pulmonary embolus. Doppler revealed right lower extremity DVT. The patient was admitted to medical floor and initiated on pneumonia protocol as well as coronavirus protocol. The patient was also initiated on therapeutic anticoagulation. Patient denies chills, chest pain, palpitation, skin rash, trauma, or known ill contacts. No prior admission for review. No medication listed at time of admission for reconciliation. Patient seen and examined today resting comfortably. She has been started on anticoagulation secondary to pulmonary embolism. We will transition her to Eliquis discussed with case management to get her on Eliquis card. She does use oxygen at home as a result of recent COVID diagnosis. It is likely that this is the reason she developed pulmonary embolism. Although outpatient further evaluation of coagulopathy is recommended. 10/22: Patient seen and examined, clinically improving, continue Eliquis, Will continue oxygen, Patient now noted with Pauses on Telemetry. Will consult cardiology, Awaiting ECHO. 10/23: Patient this morning remains stable. Still with some intermittent pause 3.5 seconds at most. Echocardiogram shows dysfunction with relaxation probably underlying diastolic heart failure. Also possibly obstructive sleep apnea. Outpatient sleep study recommended. Will await cardiology evaluation today prior to discharge. She knows she is to continue on the Eliquis. Nursing to continue to case management to ensure she gets the Eliquis card. She will continue with her oxygen and follow-up with her doctors outpatient (1) Acute hypoxemic respiratory failure Current Visit: Yes Status: Acute Plan to address problem: Supplemental oxygen, pulse oximetry, nebulizer therapy, CT scan chest, chest x- ray. (2) Pneumonia Current Visit: Yes Status: Acute Plan to address problem: Pneumonia protocol: Chest x-ray, CBC, CMP, IV antibiotic therapy, supplemental oxygen, pulse oximetry, nebulizer therapy, blood culture. (3) Coronavirus infection Current Visit: Yes Status: Acute Plan to address problem: Coronavirus protocol: IV steroid therapy, IV antibiotic therapy, supplemental oxygen, pulse oximetry, vitamin D therapy, vitamin C therapy, zinc therapy, therapeutic anticoagulation. (4) Obesity hypoventilation syndrome Current Visit: Yes Status: Acute Plan to address problem: Balanced diet, increase physical activity at discharge, outpatient pulmonary follow-up for sleep study, outpatient bariatric surgery consult. (5) Acute deep vein thrombosis of right lower extremity Current Visit: Yes Status: Acute Plan to address problem: Lower extremity Doppler, therapeutic anticoagulation, (6) Pulmonary embolism, bilateral Current Visit: Yes Status: Acute Plan to address problem: Therapeutic anticoagulation, echocardiogram to evaluate for RV strain pattern, supplemental oxygen, supportive care. Vascular surgery consulted. (7) cardiac arrhythmia with pause Current Visit: Yes Status: Acute Plan to address problem: SCDs bilateral lower extremities while in bed, continue therapeutic anticoagulation. Disposition: 01 HOME / SELF CARE / HOMELESS Final Discharge Diagnosis (Prints w/discharge instructions): Pulmonary embolism right lower extremity DVT Time spent for discharge: 35 minutes Core Measure Documentation - Palliative Care Palliative Care/ Comfort Measures: Not Applicable - Core Measures Any of the following diagnoses?: DVT/PE - VTE Discharge Requirements Deep Vein Thrombosis/Pulmonary Embolism Present on Admission: Yes Has pt received <5 days of overlap therapy or INR<2.0: No Anticoagulant overlap therapy prescribed at discharge: Yes Exam - Physical Exam Narrative exam: VITAL SIGNS: Reviewed. GENERAL: The patient appears normally developed, Morbidly obese, Vital signs as documented. HEAD: No signs of head trauma. EYES: Pupils are equal. Extraocular motions intact. EARS: Hearing grossly intact. MOUTH: Oropharynx is normal. NECK: No adenopathy, no JVD. CHEST: Chest with Diminished breath sounds bilaterally. No wheezes, rales, or rhonchi. CARDIAC: Regular rate and rhythm. S1 and S2, without murmurs, gallops, or rubs. VASCULAR: No Edema. Peripheral pulses normal and equal in all extremities. ABDOMEN: Soft, non tender and non distended. No rebound or guarding, and no masses palpated. Bowel Sounds normal. MUSCULOSKELETAL: Good range of motion of all major joints. Extremities without clubbing, cyanosis or edema. NEUROLOGIC EXAM: Alert and oriented x 3 No focal sensory or strength deficits. Speech normal. Follows commands. PSYCHIATRIC: Mood normal. SKIN: detail exam as documented in skin assessment - Constitutional Vitals: Temp Pulse Resp BP Pulse Ox 97.7 F 71 20 145/83 96 10/23/20 04:40 10/23/20 05:40 10/23/20 05:40 10/23/20 05:40 10/23/20 08:18 Plan Activity: advance as tolerated, fall precautions Diet: low fat Special Instructions: record daily weights, record daily BP diary, home oxygen via (nasal cannula @ 3 liters per minute), other (Must lose weight) Plan of Treatment: Follow with used car sales supervisor will also follow with pulmonary doctor for outpatient sleep study Follow up with: PRIMARY CARE, [Primary Care Provider] - 7 Days LUZ LEOS MD [Staff Physician] - 7 Days EDWARDO ARTEAGA MD [Staff Physician] - 7 Days Prescriptions: Apixaban [Eliquis] 5 mg PO Q12HR #10 tablet Apixaban [Eliquis] 10 mg PO Q12HR #60 tablet Famotidine [Pepcid] 10 mg PO BID #30 tablet Prednisone [predniSONE 5 mg (6-Day Pack, 21 Tabs)] 5 mg PO .TAPER #1 tab.ds.pk Ascorbic Acid [Vitamin C] 500 mg PO BID #30 tablet Cholecalciferol Vit D3 [Vitamin D3 1,000 UNIT TAB] 1,000 unit PO DAILY #30 tab let Zinc Sulfate 220 mg PO BID #60 capsule
[2020-10-23 18:07] VITALS: BP 143/85
--- NOTE | 2020-10-23 19:05 | Progress Note ---
Assessment and Plan Echo reviewed - EF 55-60%, mild diastolic dysfxn. Cardiac status is currently stable. Highly suspect underlying LISA. Pt will need to be set up for sleep study as an outpatient. Follow-up with Dr. Cheng following outpatient Pulm/Sleep evaluation ([phone]). Pt seen in conjunction with Dr. Cheng, who agrees with the assessment and plan of care. - Patient Problems (1) Acute hypoxemic respiratory failure Status: Acute (2) Pneumonia due to COVID-19 virus Status: Acute (3) Pulmonary embolism, bilateral Status: Acute (4) Acute deep vein thrombosis of right lower extremity Status: Acute (5) Sinus pause Status: Acute (6) Anemia Status: Acute (7) Obesity hypoventilation syndrome Status: Chronic (8) LISA (obstructive sleep apnea) Status: Suspected Subjective Date of service: 10/23/20 Principal diagnosis: Sinus Pause Interval history: No acute events overnight. Tele reviewed - SR 90s, 2.1 sec pause noted during overnight hours, no additional events. Objective Last Vital Signs Temp 98.0 F 10/23/20 15:33 Pulse 86 10/23/20 15:33 Resp 22 10/23/20 15:33 BP 143/85 10/23/20 15:33 Pulse Ox 93 10/23/20 15:33 - Physical Examination General: No Apparent Distress Cardiac: Positive: Reg Rate and Rhythm - Labs and Meds Comprehensive Metabolic Panel 10/23/20 Range/Units 07:21 Sodium 142 (137-145) mmol/L Potassium 4.6 (3.6-5.0) mmol/L Chloride 108.1 H (98-107) mmol/L Carbon Dioxide 27 (22-30) mmol/L BUN 18 H (7-17) mg/dL Creatinine 0.6 (0.6-1.2) mg/dL Glucose 153 H (65-100) mg/dL Calcium 8.9 (8.4-10.2) mg/dL - Imaging and Cardiology EKG: report reviewed, image reviewed Echo: report reviewed - Telemetry EKG Rhythm: Sinus Rhythm - EKG Sinus rhythms and dysrhythmias: sinus rhythm
--- NOTE | 2020-10-24 14:01 | Electrocardiograph Report ---
[facility] Test Date: 2020-10-20 Test Time: 18:24:43 Pat Name: BRADEN CHANEY Department: Room: A360 1 Gender: F Store Person: MELITON : 1975 Requested By: СВЕТЛАНА TAM Order Number: [id number] Reading MD: Rosana Meyers Measurements Intervals [place] Rate: 102 P: 31 IA: 123 QRS: 11 QRSD: 87 T: 74 QT: 345 QTc: 450 Interpretive Statements Sinus tachycardia No previous ECG available for comparison Electronically Signed On 10-24-2020 14:00:54 EDT by Rosana Meyers
[2020-10-27] MEDS ORDERED: APIXABAN 5 MG TAB PO SCH (22:00)
== END 2020-10-23 16:30 | disposition home or self-care (01) | DRG 177 ==
LOC: ED 10:42 → 3A 18:30
PROVIDERS: ADMIT Internal Medicine; ATTEND Internal Medicine
DX: U07.1 COVID-19 (principal); I26.99 Other pulmonary embolism without acute cor pulmonale; J96.01 Acute respiratory failure with hypoxia; J12.82 Pneumonia due to coronavirus disease 2019; I82.4Z1 Acute embolism and thrombosis of unspecified deep veins of right distal lower extremity; I82.431 Acute embolism and thrombosis of right popliteal vein; E66.2 Morbid (severe) obesity with alveolar hypoventilation; Z68.43 Body mass index [BMI] 50.0-59.9, adult; Z88.0 Allergy status to penicillin; D64.9 Anemia, unspecified; I49.9 Cardiac arrhythmia, unspecified
CPT/HCPCS: 36415; 71275; 80048; 82565; 83615; 83735; 84145; 84702; 85007; 85025; 85027; 85379; 85610; 85730; 86140; 93005; 93306; 94640; 94760; G0378; J0456; J1650; J2920; Q9967; U0003

== ENCOUNTER 2020-10-31 22:31 | Emergency (ER) | payer SELFPAY ==
--- NOTE | 2020-11-01 04:08 | Event Note ---
ED Screening Note Date of service: 11/01/20 Time: 03:50 ED Screening Note: 45-year-old female patient with recent history of COVID-19 and subsequent deep vein thrombosis presents to the emergency department with complaints of dizziness and vaginal bleeding. Patient states she was recently discharged home from the hospital on Eliquis. This is her first menstrual cycle since she began taking the anticoagulant. Patient states she has bled through approximately 10 pads/tampons in the last 24 hours. Patient has never been anemic and has never required a blood transfusion. Tachycardic in triage. Blood pressure 103/65. General: Awake, appropriately interactive, anxious, tearful, bleeding onto wheelchair. Eyes: Conjunctiva are pale. Neck: Supple. Full range of motion intact. Cardiovascular: Tachycardic. Normal peripheral perfusion. Pulmonary: No respiratory distress. Patient is speaking normally without use of accessory muscles. Skin: No apparent rashes or lesions. Neurological: No facial asymmetry. Speech is clear. Follows commands. Patient is alert and oriented. Musculoskeletal: Moves all four extremities spontaneously with normal range of motion. Psych: Cooperative. Appropriate mood and affect. Patient will require close hemodynamic monitoring. Nurses Aide aware. Attending emergency physician aware. I have greeted and performed a focused rapid initial assessment of this patient. A comprehensive ED assessment and evaluation of the patient, analysis of all test results, and completion of the medical decision-making process will be conducted by additional ED providers. This initial assessment/diagnostic orders/clinical plan/treatment(s) is/are subject to change based on patients health status, clinical progression and re-assessment. Further treatment and workup at subsequent clinical provider's discretion. Patient/guardian urged not to elope from the ED as their condition may be serious if not clinically assessed and managed.
[2020-11-01] MEDS ORDERED: ONDANSETRON 4 MG/2 ML INJ IV ONE (04:11)
[2020-11-01] MEDS ORDERED: SODIUM CHLORIDE 0.9% 1000 ML 1,000 ML IV ONE (04:11)
--- NOTE | 2020-11-01 04:15 | Emergency Department Report ---
<HARRISON PRO - Last Filed: 11/01/20 05:15> ED Female HPI - General Chief complaint: Dizziness Stated complaint: VAG BLEED, DIZZINESS Time Seen by Provider: 11/01/20 04:01 Source: patient, EMS, old records reviewed Mode of arrival: Ambulatory Limitations: No Limitations - History of Present Illness Initial comments: Chief complaint: Vaginal bleeding dizziness HPI: This is a 45-year-old female with recent brooke virus infection, pulmonary embolism, right lower extremity DVT, diabetes mellitus, BMI 53 who presents with severe vaginal bleeding for 3 days. Patient has felt weak and dizzy. Patient was discharged from this hospital 9 days ago October 23. She was prescribed Eliquis for VTE. She denies pain. She has bleeding much beyond her normal periods. Patient has used 10 pads or tampons in the last 24 hours. She has never been anemic. She has never required a transfusion. CT angiogram of the chest obtained 10/20/2020 revealed multiple moderate bilateral segmental acute pulmonary emboli, moderate bilateral Covid pneumonia Duplex Doppler lower extremity revealed acute DVT right calf pain right popliteal vein, superficial venous thrombosis in the gastrocnemius vein MD Complaint: vaginal bleeding -: days(s) (Several days of vaginal bleeding significant over last 3 days) Severity: severe Consistency: constant Improves with: none Worsens with: none Are you Now?: No Associated Symptoms: weakness, other (Dizziness) - Related Data Previous Rx's Medication Instructions Recorded Last Taken Type Apixaban [Eliquis] 5 mg PO Q12HR #10 tablet 10/23/20 Unknown Rx Apixaban [Eliquis] 10 mg PO Q12HR #60 tablet 10/23/20 Unknown Rx Ascorbic Acid [Vitamin C] 500 mg PO BID #30 tablet 10/23/20 Unknown Rx Cholecalciferol Vit D3 [Vitamin D3 1,000 unit PO DAILY #30 tablet 10/23/20 Unknown Rx 1,000 UNIT TAB] Famotidine [Pepcid] 10 mg PO BID #30 tablet 10/23/20 Unknown Rx Prednisone [predniSONE 5 mg (6-Day 5 mg PO .TAPER #1 tab.ds.pk 10/23/20 Unknown Rx Pack, 21 Tabs)] Zinc Sulfate 220 mg PO BID #60 capsule 10/23/20 Unknown Rx Allergies Allergy/AdvReac Type Severity Reaction Status Date / Time Penicillins Allergy Swelling Verified 10/20/20 11:45 ED Review of Systems Comment: All other systems reviewed and negative Constitutional: malaise. denies: chills, fever Respiratory: denies: cough, shortness of breath Cardiovascular: denies: chest pain Gastrointestinal: denies: abdominal pain, nausea, vomiting Genitourinary: abnormal menses Neurological: denies: headache ED Past Medical Hx - Past Medical History Previous Medical History?: Yes Hx Congestive Heart Failure: No Hx Diabetes: Yes Hx Liver Disease: No Hx Seizures: No Hx Asthma: No Hx COPD: No Hx Dementia: No Hx HIV: No - Surgical History Past Surgical History?: Yes Additional Surgical History: ECTOPIC PREG - Family History Family history: hypertension - Social History Smoking Status: Never Smoker Substance Use Type: None - Medications Home Medications: Home Medications Medication Instructions Recorded Confirmed Last Taken Type Apixaban [Eliquis] 5 mg PO Q12HR #10 tablet 10/23/20 Unknown Rx Apixaban [Eliquis] 10 mg PO Q12HR #60 tablet 10/23/20 Unknown Rx Ascorbic Acid [Vitamin C] 500 mg PO BID #30 tablet 10/23/20 Unknown Rx Cholecalciferol Vit D3 [Vitamin D3 1,000 unit PO DAILY #30 tablet 10/23/20 Unknown Rx 1,000 UNIT TAB] Famotidine [Pepcid] 10 mg PO BID #30 tablet 10/23/20 Unknown Rx Prednisone [predniSONE 5 mg (6-Day 5 mg PO .TAPER #1 tab.ds.pk 10/23/20 Unknown Rx Pack, 21 Tabs)] Zinc Sulfate 220 mg PO BID #60 capsule 10/23/20 Unknown Rx ED Physical Exam - General Limitations: No Limitations General appearance: alert, other (Clammy pale actively vomiting appears uncomfortable) - Head Head exam: Present: atraumatic, normocephalic - Eye Eye exam: Present: normal appearance - ENT ENT exam: Present: mucous membranes moist - Neck Neck exam: Present: normal inspection, full ROM - Respiratory Respiratory exam: Present: normal lung sounds bilaterally. Absent: respiratory distress, wheezes, rales, rhonchi - Cardiovascular Cardiovascular Exam: Present: normal rhythm, tachycardia, normal heart sounds, other (1+ radial pulse). Absent: systolic murmur, diastolic murmur, rubs, g allop - GI/Abdominal GI/Abdominal exam: Present: soft. Absent: distended, tenderness, guarding, rebound - Extremities Exam Extremities exam: Present: normal inspection - Back Exam Back exam: Present: normal inspection - Neurological Exam Neurological exam: Present: alert, oriented X3 - Psychiatric Psychiatric exam: Present: normal affect, normal mood - Skin Skin exam: Present: intact, other (Clammy pale). Absent: rash ED Medical Decision Making - Lab Data Result diagrams: 11/01/20 04:26 - Medical Decision Making 1. Symptomatic anemia: Hemoglobin 7, upon admission 12 days ago hemoglobin 10. Will transfuse 1 unit packed red blood cells considering patient's tachycardia and hypotension. 2. Abnormal vaginal bleeding, pelvic ultrasound pending. My colleague will determine final disposition. Critical Care Time: Yes Critical care time in (mins) excluding proc time.: 40 Critical care attestation.: 40 minutes of critical care time excluding procedures were used in the care of the patient. My colleague at triage informing that patient had systolic blood pressure 100 mm HG. she personally placed patient in the monitor room. I came immediately to the bedside upon patient's arrival to treatment room. Patient has faint radial pulse with active vomiting. I was concerned for hemorrhagic shock. I discussed treatment plan with the nursing team members. I reviewed electronic record. Patient required multiple interventions and reassessments. ED Disposition Clinical Impression: DUB (dysfunctional uterine bleeding), Anticoagulant adverse reaction, Anemia Disposition: 01 HOME / SELF CARE / HOMELESS Condition: Stable Instructions: Abnormal Uterine Bleeding, [id number] Referrals: HARLAN CHICAS MD [Staff Physician] - 3-5 Days <KARTHIK PRO - Last Filed: 11/01/20 14:29> ED Review of Systems ROS: Stated complaint: VAG BLEED, DIZZINESS Other details as noted in HPI ED Course Vital Signs 11/01/20 11/01/20 11/01/20 03:46 07:53 10:18 Temperature 98.1 F 98.5 F Pulse Rate 117 H 97 H Respiratory 16 18 Rate Blood Pressure 112/64 Blood Pressure 103/65 [Left] O2 Sat by Pulse 99 97 100 Oximetry 11/01/20 11/01/20 11/01/20 10:33 11:03 11:33 Temperature 98.6 F 98.4 F 98.4 F Pulse Rate 92 H 85 93 H Respiratory 17 17 17 Rate Blood Pressure 101/61 110/64 97/51 Blood Pressure [Left] O2 Sat by Pulse 99 100 100 Oximetry 11/01/20 11/01/20 11/01/20 12:03 12:33 13:03 Temperature 98.5 F 98.5 F 98.4 F Pulse Rate 90 90 87 Respiratory 19 16 16 Rate Blood Pressure 115/59 117/57 109/58 Blood Pressure [Left] O2 Sat by Pulse 97 98 99 Oximetry 11/01/20 11/01/20 11/01/20 13:33 14:03 14:15 Temperature 98.6 F 98.5 F 98.5 F Pulse Rate 79 94 H 87 Respiratory 16 17 18 Rate Blood Pressure 110/57 116/56 105/57 Blood Pressure [Left] O2 Sat by Pulse 98 95 99 Oximetry - Reevaluation(s) Reevaluation #1: 11/01/20 14:26 Patient received blood transfusion. Blood pressures increased to approximately 115 systolic and states she is feeling much improved. No reactions to blood transfusion. Patient will be started on Provera and given COMPRESS ENGINEER for follow-up and the patient will be discharged home in stable condition. ED Medical Decision Making - Lab Data Result diagrams: 11/01/20 04:26 11/01/20 04:26 Lab Results 11/01/20 11/01/20 11/01/20 Range/Units 04:26 04:26 04:26 WBC 12.3 H (4.5-11.0) K/mm3 RBC 3.10 L (3.65-5.03) M/mm3 Hgb 7.1 L (10.1-14.3) gm/dl Hct 23.1 L (30.3-42.9) % MCV 75 L (79-97) fl MCH 23 L (28-32) pg MCHC 31 (30-34) % RDW 21.0 H (13.2-15.2) % Plt Count 357 (140-440) K/mm3 Lymph % (Auto) 27.6 (13.4-35.0) % Pope % (Auto) 8.2 H (0.0-7.3) % Eos % (Auto) 2.1 (0.0-4.3) % Baso % (Auto) 0.4 (0.0-1.8) % Lymph # (Auto) 3.4 (1.2-5.4) K/mm3 Pope # (Auto) 1.0 H (0.0-0.8) K/mm3 Eos # (Auto) 0.3 (0.0-0.4) K/mm3 Baso # (Auto) 0.0 (0.0-0.1) K/mm3 Seg Neutrophils % 61.7 (40.0-70.0) % Seg Neutrophils # 7.6 (1.8-7.7) K/mm3 Sodium 134 L (137-145) mmol/L Potassium 4.1 (3.6-5.0) mmol/L Chloride 98.2 (98-107) mmol/L Carbon Dioxide 23 (22-30) mmol/L Anion Gap 17 mmol/L BUN 16 (7-17) mg/dL Creatinine 1.1 (0.6-1.2) mg/dL Estimated GFR 54 ml/min BUN/Creatinine Ratio 15 % Glucose 195 H (65-100) mg/dL Calcium 8.4 (8.4-10.2) mg/dL HCG, Qual Negative (Negative) - Radiology Data ULTRASOUND PELVIS INDICATION / CLINICAL INFORMATION: abnormal vaginal bleeding. TECHNIQUE: Transabdominal. Duplex Color Doppler used: Yes. COMPARISON: None available FINDINGS: UTERUS: 8.4 x 4.6 x 6.1 cm endometrium is thickened measuring 7 mm. RIGHT ADNEXA: No significant ovarian cyst or mass. Normal color Doppler blood flow. 5.2 x 4.3 x 6.7 cm. Cystic lesion measuring 4.3 x 4.5 x 4.3 cm LEFT ADNEXA: Removed URINARY BLADDER: No significant abnormality. FREE FLUID: None. ADDITIONAL FINDINGS: None. IMPRESSION: 1. Cystic lesion right ovary measures 4.3 x 4.5 x 4.3 cm. Follow-up could be performed to document resolution. 2. Left ovary has been removed. Signer Name: Fred Holliday MD Signed: 11/01/2020 6:37 AM Workstation Name: [id number] Critical care attestation.: If time is entered above; I have spent that time in minutes in the direct care of this critically ill patient, excluding procedure time. ED Disposition Is pt being admited?: No Does the pt Need Aspirin: No Time of Disposition: 14:27
[2020-11-01 05:06] LABS: Basophils % (Auto) 0.4 % (0.0-1.8); Eosinophils # (Auto) 0.3 K/mm3 (0.0-0.4); Eosinophils % (Auto) 2.1 % (0.0-4.3); Hematocrit 23.1 % (30.3-42.9); Hemoglobin 7.1 gm/dl (10.1-14.3); Lymphocytes # (Auto) 3.4 K/mm3 (1.2-5.4); Lymphocytes % (Auto) 27.6 % (13.4-35.0); Mean Corpuscular HGB Conc 31 % (30-34); Mean Corpuscular Volume 75 fl (79-97); Monocytes % (Auto) 8.2 % (0.0-7.3); Platelet Count 357 K/mm3 (140-440)
[2020-11-01] MEDS ORDERED: SODIUM CHLORIDE 0.9% 500 ML 500 ML IV ONE (05:13)
[2020-11-01 05:26] LABS: Calcium 8.4 mg/dL (8.4-10.2)
--- NOTE | 2020-11-01 06:42 | Ultrasound Report ---
ULTRASOUND PELVIS INDICATION / CLINICAL INFORMATION: abnormal vaginal bleeding. TECHNIQUE: Transabdominal. Duplex Color Doppler used: Yes. COMPARISON: None available FINDINGS: UTERUS: 8.4 x 4.6 x 6.1 cm endometrium is thickened measuring 7 mm. RIGHT ADNEXA: No significant ovarian cyst or mass. Normal color Doppler blood flow. 5.2 x 4.3 x 6.7 c m. Cystic lesion measuring 4.3 x 4.5 x 4.3 cm LEFT ADNEXA: Removed URINARY BLADDER: No significant abnormality. FREE FLUID: None. ADDITIONAL FINDINGS: None. IMPRESSION: 1. Cystic lesion right ovary measures 4.3 x 4.5 x 4.3 cm. Follow-up could be performed to document re solution. 2. Left ovary has been removed. Signer Name: Fred Holliday MD Signed: 11/01/2020 6:37 AM Workstation Name: [id number]
[2020-11-01] MEDS ORDERED: medroxyPROGESTERone ACETATE 5 MG TAB PO NR (07:04)
[2020-11-01] MEDS ORDERED: SODIUM CHLORIDE 0.9% 1000 ML 1,000 ML ONE (10:07)
[2020-11-01 14:58] VITALS: BP 108/51
== END 2020-11-01 15:00 | disposition home or self-care (01) ==
LOC: ED 22:31
DX: N93.8 Other specified abnormal uterine and vaginal bleeding (principal); T45.515A Adverse effect of anticoagulants, initial encounter; D64.9 Anemia, unspecified; Z88.0 Allergy status to penicillin; E11.8 Type 2 diabetes mellitus with unspecified complications
CPT/HCPCS: 36415; 36430; 76856; 80048; 84703; 85025; 86850; 86900; 86901; 86920; 96361; 96374; 99284; J2405; J7030; P9016